=== PATIENT | male | born 1935 | race Asian ===

== ENCOUNTER 2016-09-26 19:55 | Emergency (ER) | payer OTHER, BC ==
[~2016-09-26 19:55] MED LIST: ALD25 PO; AMLODIPINE BESYL5 M1 GT; AMLODIPINE BESYL5 M1 PO; APAP/HYDROCODON1 T13 GT; ASPI-COR81 M1 PO; ASPIR LOW81 MG PO; BACLOFEN10 MG; BACLOFEN10 MG PO; BACOINT TOP; CARVEDILOL12.5 M1 PO; CARVEDILOL12.5 MG PO; CEL250; CEL500 PO; CELLCEPT500 MG GT; CIPROFLOXACIN500 MG GT; CLEOCIN HCL150 MG GT; CLINDAMYCIN HC300 MG GT; CLINDAMYCIN HC300 MG PO; COLACE100 MG GT; COR3 GT; COREG CR20 MG; COREG GT; COZ50 GT; COZAAR25 M PO; COZAAR50 MG PO; DIFLUCAN200 MG PO; ECO81 GT; ELA25 GT; ELAVIL25 MG PO; FINASTERIDE5 M1 PO; FLO4 PO; FLUOXETINE10 M1 PO; GLUCERNA; GOOD SENSE ASPI81 M3 PO; HYDROCOD BIT &1 TAB PO; HYDROCODONE/ACE1 TA2; HYDROCODONE/ACE1 TA2 PO; KEP500 GT; KEPPRA100 MG/M1; KEPPRA1000 M1 PO; LAC GT; LEVAQUIN750 MG GT; LIO10 GT; LIO10 PO; LIPI10 GT; LIPI20 GT; LIPI20 PO; LIPITOR40 MG PO; LOM GT; LOSARTAN POTASS25 M1 PO; LOSARTAN POTASS50 MG PO; MAC100 PO; METFORMIN ER500 M1; METFORMIN HCL500 MG GT; METFORMIN HCL500 MG PO; MIRTAZAPINE GT; MOM GT; NEU100 PO; NOR10T GT; NORCO1 TA2 GT; NYSTATIN100000 U/M PO; OMEPRAZOLE DR20 M1 PO; PROAIR HFA0.09 MG/A1 INH; PROS5 GT; PROSCAR5 MG PO; PROTONIX20 MG; PROTONIX40 MG GT; PROTONIX40 MG/Pac1 GT; PROZ10 PO; REM15 GT; REM15 PO; TRA50 GT; TRAZODONE HCL50 PO; TRAZODONE50 M1 PO; TYLENOL EXTRA500 M2; TYLENOL GT; TYLENOL650 M1 PR; VERIPRED 220 MG/5 ML PO; VIC GT; ZOF4 GT; [UNRECOGNIZED DRUG - OTHER] GT
[2016-09-26 21:08] LABS: BASOPHIL % 0.9 % (0-2); PLATELET COUNT 137 x10^3mcL (130-400)
[2016-09-26 21:19] LABS: CALCIUM 9.1 mg/dL (8.5-10.1); CARBON DIOXIDE 30.5 mmol/L (21-32); CHLORIDE SERUM 101 mmol/L (98-107); CREATININE SERUM 0.6 mg/dL (0.7-1.3); GLUCOSE SERUM 112 mg/dL (74-106); POTASSIUM SERUM 4.1 mmol/L (3.5-5.1); SODIUM SERUM 135 mmol/L (136-145)
[2016-09-26 21:24] LABS: ALKALINE PHOSPHATASE 102 U/L (46-116); ALT/SGPT 30 U/L (16-63); AST/SGOT 21 U/L (15-37); BILIRUBIN TOTAL 0.5 mg/dL (0.20-1.00); LIPASE 72 IU/L (73-393); MAGNESIUM 2.1 mg/dL (1.8-2.4); TOTAL PROTEIN, SERUM 7.2 g/dL (6.4-8.2)
[2016-09-26 21:25] LABS: ALBUMIN 3.2 g/dL (3.4-5.0)
[2016-09-26 21:36] LABS: microscopic required? NO
[2016-09-26 21:40] LABS: RED CELL DISTRIBUTION WIDTH 16.4 % (11.5-14.5)
[2016-09-26 21:44] LABS: UA SPECIFIC GRAVITY <=1.005 (1.005-1.035); urine erythrocyte NEGATIVE (NEGATIVE)
[2016-09-27] VITALS: BP 106/71
== END 2016-09-27 | disposition home or self-care (01) ==
LOC: ED 19:55
PROVIDERS: Emergency Medicine
DX: R09.89 Other specified symptoms and signs involving the circulatory and respiratory systems (principal); R50.9 Fever, unspecified; Z88.8 Allergy status to other drugs, medicaments and biological substances; Z88.5 Allergy status to narcotic agent; Z91.040 Latex allergy status; Z79.899 Other long term (current) drug therapy; Z79.82 Long term (current) use of aspirin; Z79.84 Long term (current) use of oral hypoglycemic drugs
CPT/HCPCS: 36415; 36600; 83880; J0696; J2001

== ENCOUNTER 2016-12-13 13:36 | Emergency (ER) | payer OTHER, BC ==
[2016-12-13 14:20] LABS: microscopic required? NO
[2016-12-13 14:31] LABS: BASOPHIL % 0.4 % (0-2)
[2016-12-13 14:32] LABS: PLATELET COUNT 121 x10^3mcL (130-400); RED CELL DISTRIBUTION WIDTH 15.7 % (11.5-14.5)
[2016-12-13 14:35] LABS: CALCIUM 8.9 mg/dL (8.5-10.1); CARBON DIOXIDE 30.9 mmol/L (21-32); CHLORIDE SERUM 103 mmol/L (98-107); CREATININE SERUM 0.6 mg/dL (0.7-1.3); GLUCOSE SERUM 123 mg/dL (74-106); POTASSIUM SERUM 4.2 mmol/L (3.5-5.1); SODIUM SERUM 138 mmol/L (136-145)
[2016-12-13 14:40] LABS: ALKALINE PHOSPHATASE 89 U/L (46-116); ALT/SGPT 22 U/L (16-63); AST/SGOT 15 U/L (15-37); BILIRUBIN TOTAL 0.48 mg/dL (0.20-1.00); TOTAL PROTEIN, SERUM 7.2 g/dL (6.4-8.2)
[2016-12-13 14:45] LABS: UA SPECIFIC GRAVITY <=1.005 (1.005-1.035); urine erythrocyte NEGATIVE (NEGATIVE)
[2016-12-13 16:59] VITALS: BP 121/76
== END 2016-12-13 18:01 | disposition home or self-care (01) ==
LOC: ED 13:36
PROVIDERS: Emergency Medicine
DX: H72.92 Unspecified perforation of tympanic membrane, left ear (principal); G93.40 Encephalopathy, unspecified; E78.00 Pure hypercholesterolemia, unspecified; I10 Essential (primary) hypertension; E11.9 Type 2 diabetes mellitus without complications; L12.0 Bullous pemphigoid; K21.9 Gastro-esophageal reflux disease without esophagitis; Z79.84 Long term (current) use of oral hypoglycemic drugs; Z79.891 Long term (current) use of opiate analgesic; Z79.899 Other long term (current) drug therapy; Z86.79 Personal history of other diseases of the circulatory system; Z87.820 Personal history of traumatic brain injury; Z95.5 Presence of coronary angioplasty implant and graft; Z98.890 Other specified postprocedural states
CPT/HCPCS: 83880; J0295; J3490; J7030; J7050; Q0092

== ENCOUNTER 2017-01-10 18:17 | Emergency (ER) | payer OTHER, BC ==
[2017-01-10 20:48] LABS: BASOPHIL % 0.6 % (0-2); PLATELET COUNT 149 x10^3mcL (130-400)
[2017-01-10 20:54] LABS: CALCIUM 9.3 mg/dL (8.5-10.1); CARBON DIOXIDE 29.9 mmol/L (21-32); CHLORIDE SERUM 103 mmol/L (98-107); CREATININE SERUM 0.6 mg/dL (0.7-1.3); GLUCOSE SERUM 116 mg/dL (74-106); POTASSIUM SERUM 4.5 mmol/L (3.5-5.1); SODIUM SERUM 136 mmol/L (136-145)
[2017-01-10 20:59] LABS: ALBUMIN 3.4 g/dL (3.4-5.0); ALKALINE PHOSPHATASE 96 U/L (46-116); ALT/SGPT 23 U/L (16-63); AST/SGOT 19 U/L (15-37); HDL CHOLESTEROL 44 mg/dL (40-60); TOTAL PROTEIN, SERUM 7.8 g/dL (6.4-8.2)
[2017-01-10 21:02] LABS: CHOLESTEROL 92 mg/dL (<200)
[2017-01-10 21:07] LABS: microscopic required? NO
[2017-01-10 21:11] LABS: urine erythrocyte NEGATIVE (NEGATIVE)
[2017-01-10 23:05] VITALS: BP 148/99
== END 2017-01-10 23:05 | disposition home or self-care (01) ==
LOC: ED 18:17
PROVIDERS: Emergency Medicine
DX: J69.0 Pneumonitis due to inhalation of food and vomit (principal); E86.0 Dehydration; I10 Essential (primary) hypertension; E11.9 Type 2 diabetes mellitus without complications; Z79.899 Other long term (current) drug therapy; E78.00 Pure hypercholesterolemia, unspecified; K21.9 Gastro-esophageal reflux disease without esophagitis; Z79.84 Long term (current) use of oral hypoglycemic drugs; Z95.5 Presence of coronary angioplasty implant and graft
CPT/HCPCS: 83880; Q0092

== ENCOUNTER 2017-04-03 17:23 | Emergency (ER) | payer OTHER, BC ==
[~2017-04-03] VITALS: Ht 165.1 cm; Wt 50.8 kg
[2017-04-03 18:48] VITALS: Ht 165.1 cm; Wt 50.8 kg
[2017-04-03 22:45] LABS: BASOPHIL % 1.1 % (0-2)
[2017-04-03 22:46] LABS: CALCIUM 9.6 mg/dL (8.5-10.1); CARBON DIOXIDE 32.2 mmol/L (21-32); CHLORIDE SERUM 101 mmol/L (98-107); CREATININE SERUM 0.6 mg/dL (0.7-1.3); GLUCOSE SERUM 134 mg/dL (74-106); POTASSIUM SERUM 4.5 mmol/L (3.5-5.1); SODIUM SERUM 138 mmol/L (136-145)
[2017-04-03 22:50] LABS: ALKALINE PHOSPHATASE 123 U/L (46-116); ALT/SGPT 23 U/L (16-63); AST/SGOT 21 U/L (15-37); BILIRUBIN TOTAL 0.55 mg/dL (0.20-1.00); LIPASE 93 IU/L (73-393); TOTAL PROTEIN, SERUM 7.7 g/dL (6.4-8.2)
[2017-04-03 22:55] LABS: ALBUMIN 3.2 g/dL (3.4-5.0)
[2017-04-03 22:56] LABS: PLATELET COUNT 86 x10^3mcL (130-400); RED CELL DISTRIBUTION WIDTH 15.4 % (11.5-14.5)
[2017-04-03 23:25] LABS: microscopic required? NO
[2017-04-03 23:43] LABS: urine erythrocyte NEGATIVE (NEGATIVE)
[2017-04-04 02:01] LABS: AMPHETAMINE QUAL UR NONE DETECTED (NEG <=1000)
[2017-04-04 03:01] LABS: MAGNESIUM 2.2 mg/dL (1.8-2.4); PHOSPHOROUS 3.1 mg/dL (2.5-4.9)
[2017-04-04 03:22] VITALS: BP 125/80
[2017-04-04 06:07] LABS: FREE T4 1.46 ng/dL (0.76-1.46); FREE THYROXINE INDEX 2.9 ug/dL (1.4-4.5); T4(THYROXINE) 7.6 ug/dL (4.7-13.3)
[2017-04-04 06:12] LABS: T3 TOTAL 0.59 ng/mL
== END 2017-04-04 03:22 | disposition home or self-care (01) ==
LOC: ED 17:23 → DU 23:59 → ED 04-04 03:22
PROVIDERS: Emergency Medicine; Student in an Organized Health Care Education/Training Program
DX: J18.9 Pneumonia, unspecified organism (principal); I10 Essential (primary) hypertension; E78.00 Pure hypercholesterolemia, unspecified; K21.9 Gastro-esophageal reflux disease without esophagitis; E11.9 Type 2 diabetes mellitus without complications; Z88.1 Allergy status to other antibiotic agents; Z88.5 Allergy status to narcotic agent; Z88.8 Allergy status to other drugs, medicaments and biological substances
CPT/HCPCS: 83880; 84439; 87804; J1956; J7030; Q0092

== ENCOUNTER 2019-03-07 17:11 | Inpatient (IN) | payer OTHER, BC ==
[~2019-03-07] VITALS: Ht 165.1 cm; Wt 47.2 kg
[2019-03-07 20:15] LABS: microscopic required? NO
[2019-03-07 20:35] LABS: UA SPECIFIC GRAVITY 1.015 (1.005-1.035); urine erythrocyte NEGATIVE (NEGATIVE)
[2019-03-07 20:36] LABS: BASOPHIL % 0.3 % (0-2); PLATELET COUNT 260 x10^3mcL (130-400)
[2019-03-07 20:37] LABS: RED CELL DISTRIBUTION WIDTH 14.6 % (11.5-14.5)
[2019-03-07 21:00] LABS: CALCIUM 9.2 mg/dL (8.5-10.1); CARBON DIOXIDE 27.3 mmol/L (21-32); CHLORIDE SERUM 94 mmol/L (98-107); CREATININE SERUM 0.5 mg/dL (0.7-1.3); GLUCOSE SERUM 129 mg/dL (74-106); POTASSIUM SERUM 4.2 mmol/L (3.5-5.1); SODIUM SERUM 129 mmol/L (136-145)
[2019-03-07 21:03] LABS: T3 TOTAL 0.85 ng/mL
[2019-03-07 21:09] LABS: ALKALINE PHOSPHATASE 115 U/L (46-116); ALT/SGPT 34 U/L (16-63); AST/SGOT 22 U/L (15-37); BILIRUBIN TOTAL 0.8 mg/dL (0.20-1.00); C REACTIVE PROTEIN 6.4 mg/dL (<=0.9); TOTAL PROTEIN, SERUM 7.5 g/dL (6.4-8.2)
[2019-03-07 21:10] LABS: ALBUMIN 2.8 g/dL (3.4-5.0)
[2019-03-07 21:13] LABS: FREE T4 1.91 ng/dL (0.76-1.46); FREE THYROXINE INDEX 4.1 ug/dL (1.4-4.5); T4(THYROXINE) 9.9 ug/dL (4.7-13.3)
[2019-03-07 21:14] LABS: CK-MB 2.1 ng/mL (0-3.6)
[2019-03-07 21:22] LABS: ERYTHROCYTE SED RATE 53 mm/hr (0-20)
[2019-03-08 02:59] VITALS: BP 134/89
[2019-03-08 03:00] VITALS: BP 130/85
[2019-03-08 05:28] VITALS: BP 130/85
[2019-03-08 09:24] VITALS: BP 147/99
[2019-03-08 13:18] VITALS: BP 137/88
[2019-03-08 19:30] VITALS: BP 140/89
[2019-03-09 05:34] VITALS: BP 118/71
[2019-03-09 05:58] LABS: BASOPHIL % 0.6 % (0-2); PLATELET COUNT 282 x10^3mcL (130-400)
[2019-03-09 06:00] LABS: RED CELL DISTRIBUTION WIDTH 15.2 % (11.5-14.5)
[2019-03-09 06:30] LABS: CALCIUM 8.9 mg/dL (8.5-10.1); CARBON DIOXIDE 30.7 mmol/L (21-32); CHLORIDE SERUM 97 mmol/L (98-107); CREATININE SERUM 0.6 mg/dL (0.7-1.3); GLUCOSE SERUM 126 mg/dL (74-106); POTASSIUM SERUM 3.9 mmol/L (3.5-5.1); SODIUM SERUM 134 mmol/L (136-145)
[2019-03-09 09:50] VITALS: BP 131/84
[2019-03-09 14:34] VITALS: BP 124/76
[2019-03-09 16:52] VITALS: BP 128/81
[2019-03-09 21:16] VITALS: BP 125/80
[2019-03-10 05:24] VITALS: BP 92/64
[2019-03-10 05:37] VITALS: BP 115/72
[2019-03-10 08:24] VITALS: BP 118/77
[2019-03-10 10:06] VITALS: BP 118/77
[2019-03-10 12:11] VITALS: BP 118/75
[2019-03-10 16:42] VITALS: BP 117/72
== END 2019-03-10 19:00 | disposition home or self-care (01) | DRG 177 ==
LOC: ED 17:11 → DU 03-08 01:26 → ED 03-08 02:25 → DU 03-08 03:05
PROVIDERS: Specialist; ADMIT Internal Medicine
DX: J69.0 Pneumonitis due to inhalation of food and vomit (principal); J96.21 Acute and chronic respiratory failure with hypoxia; G93.41 Metabolic encephalopathy; E87.1 Hypo-osmolality and hyponatremia; I50.9 Heart failure, unspecified; J45.909 Unspecified asthma, uncomplicated; E86.0 Dehydration; K59.00 Constipation, unspecified; I11.9 Hypertensive heart disease without heart failure; I25.10 Atherosclerotic heart disease of native coronary artery without angina pectoris; E11.9 Type 2 diabetes mellitus without complications; M24.561 Contracture, right knee; G40.909 Epilepsy, unspecified, not intractable, without status epilepticus; G43.909 Migraine, unspecified, not intractable, without status migrainosus; Z87.01 Personal history of pneumonia (recurrent); Z68.36 Body mass index [BMI] 36.0-36.9, adult; Z74.01 Bed confinement status; Z87.820 Personal history of traumatic brain injury; Z93.1 Gastrostomy status; Z95.5 Presence of coronary angioplasty implant and graft; Z79.84 Long term (current) use of oral hypoglycemic drugs; Z86.73 Personal history of transient ischemic attack (TIA), and cerebral infarction without residual deficits
CPT/HCPCS: 82962; 83880; 84439; 90658; 90732; G0378; J0696; J1956; J2543; J7030; J7517; J7613; J7620; J7644; Q0092

== ENCOUNTER 2019-04-25 15:12 | Inpatient (IN) | payer OTHER, BC ==
[~2019-04-25] VITALS: Ht 170.2 cm; Wt 50.0 kg
[2019-04-25 16:20] LABS: BASOPHIL % 0.9 % (0-2); PLATELET COUNT 159 x10^3mcL (130-400)
[2019-04-25 16:29] LABS: RED CELL DISTRIBUTION WIDTH 17.1 % (11.5-14.5)
[2019-04-25 16:34] LABS: microscopic required? NO
[2019-04-25 16:49] LABS: UA SPECIFIC GRAVITY 1.015 (1.005-1.035); urine erythrocyte NEGATIVE (NEGATIVE)
[2019-04-25 17:02] LABS: ALBUMIN 2.9 g/dL (3.4-5.0); CARBON DIOXIDE 28.8 mmol/L (21-32); CHLORIDE SERUM 97 mmol/L (98-107); CREATININE SERUM 0.5 mg/dL (0.7-1.3); GLUCOSE SERUM 147 mg/dL (74-106); POTASSIUM SERUM 4.3 mmol/L (3.5-5.1); SODIUM SERUM 132 mmol/L (136-145); TOTAL PROTEIN, SERUM 7.3 g/dL (6.4-8.2)
[2019-04-25 17:03] LABS: ALKALINE PHOSPHATASE 121 U/L (46-116); ALT/SGPT 28 U/L (16-63); AST/SGOT 18 U/L (15-37); BILIRUBIN TOTAL 0.7 mg/dL (0.20-1.00); CALCIUM 9.1 mg/dL (8.5-10.1)
[2019-04-25 17:50] VITALS: BP 130/86
[2019-04-25 19:01] VITALS: BP 143/97
[2019-04-25] MEDS ORDERED: ACIDOPHILUS LA1 EAC1 GT (20:28)
[2019-04-25 20:36] VITALS: BP 139/86
[2019-04-26 04:59] VITALS: BP 132/87
[2019-04-26 06:28] LABS: BASOPHIL % 0.4 % (0-2); PLATELET COUNT 149 x10^3mcL (130-400)
[2019-04-26 06:42] LABS: CALCIUM 9.1 mg/dL (8.5-10.1); CARBON DIOXIDE 31.1 mmol/L (21-32); CHLORIDE SERUM 98 mmol/L (98-107); CREATININE SERUM 0.4 mg/dL (0.7-1.3); GLUCOSE SERUM 115 mg/dL (74-106); POTASSIUM SERUM 4.1 mmol/L (3.5-5.1); SODIUM SERUM 134 mmol/L (136-145)
[2019-04-26 08:45] VITALS: BP 143/102
[2019-04-26 13:00] VITALS: BP 132/93
[2019-04-26 17:23] VITALS: BP 130/90
[2019-04-26 22:07] VITALS: BP 126/85
[2019-04-27 05:40] VITALS: BP 143/99
[2019-04-27 08:09] VITALS: BP 135/86
[2019-04-27 12:04] VITALS: BP 105/70
[2019-04-27 17:20] VITALS: BP 138/95
[2019-04-27 20:30] VITALS: BP 142/90
[2019-04-28 05:51] VITALS: BP 132/89
[2019-04-28 06:32] LABS: BASOPHIL % 0.5 % (0-2); PLATELET COUNT 166 x10^3mcL (130-400)
[2019-04-28 06:41] LABS: RED CELL DISTRIBUTION WIDTH 16.8 % (11.5-14.5)
[2019-04-28 08:42] VITALS: BP 124/67
[2019-04-28 08:43] LABS: CALCIUM 9.5 mg/dL (8.5-10.1); CARBON DIOXIDE 30.9 mmol/L (21-32); CHLORIDE SERUM 97 mmol/L (98-107); CREATININE SERUM 0.6 mg/dL (0.7-1.3); GLUCOSE SERUM 142 mg/dL (74-106); POTASSIUM SERUM 4.2 mmol/L (3.5-5.1); SODIUM SERUM 134 mmol/L (136-145)
[2019-04-28 12:06] VITALS: BP 115/71
[2019-04-28 16:59] VITALS: BP 114/77
[2019-04-28 19:40] VITALS: BP 104/63
[2019-04-29 04:02] VITALS: BP 132/81
[2019-04-29 06:58] LABS: CALCIUM 9.4 mg/dL (8.5-10.1); CARBON DIOXIDE 35.3 mmol/L (21-32); CHLORIDE SERUM 98 mmol/L (98-107); CREATININE SERUM 0.5 mg/dL (0.7-1.3); GLUCOSE SERUM 131 mg/dL (74-106); POTASSIUM SERUM 4.4 mmol/L (3.5-5.1); SODIUM SERUM 135 mmol/L (136-145)
[2019-04-29 07:22] LABS: BASOPHIL % 0.3 % (0-2); PLATELET COUNT 154 x10^3mcL (130-400)
[2019-04-29 07:26] LABS: RED CELL DISTRIBUTION WIDTH 16.2 % (11.5-14.5)
[2019-04-29 08:29] VITALS: BP 142/82
[2019-04-29 12:43] VITALS: BP 127/76
[2019-04-29 16:39] VITALS: BP 129/85
[2019-04-29 20:37] VITALS: BP 139/83
[2019-04-30 05:16] VITALS: BP 126/81
[2019-04-30 06:21] LABS: BASOPHIL % 0.3 % (0-2); PLATELET COUNT 151 x10^3mcL (130-400)
[2019-04-30 07:21] LABS: RED CELL DISTRIBUTION WIDTH 16.3 % (11.5-14.5)
[2019-04-30 08:47] VITALS: BP 125/80
[2019-04-30 09:34] LABS: CALCIUM 9.9 mg/dL (8.5-10.1); CARBON DIOXIDE 35.1 mmol/L (21-32); CHLORIDE SERUM 96 mmol/L (98-107); CREATININE SERUM 0.5 mg/dL (0.7-1.3); GLUCOSE SERUM 141 mg/dL (74-106); POTASSIUM SERUM 4.4 mmol/L (3.5-5.1); SODIUM SERUM 135 mmol/L (136-145)
[2019-04-30 12:09] VITALS: BP 131/88
[2019-04-30 17:23] VITALS: BP 125/86
[2019-04-30 19:32] VITALS: BP 166/94
[2019-05-01 04:26] VITALS: BP 140/84
[2019-05-01 06:56] LABS: BASOPHIL % 0.3 % (0-2); PLATELET COUNT 162 x10^3mcL (130-400)
[2019-05-01 08:25] LABS: CALCIUM 9.7 mg/dL (8.5-10.1); CARBON DIOXIDE 39.4 mmol/L (21-32); CHLORIDE SERUM 98 mmol/L (98-107); CREATININE SERUM 0.5 mg/dL (0.7-1.3); GLUCOSE SERUM 141 mg/dL (74-106); POTASSIUM SERUM 3.9 mmol/L (3.5-5.1); SODIUM SERUM 138 mmol/L (136-145)
[2019-05-01 08:27] VITALS: Ht 170.2 cm; Wt 50.0 kg
[2019-05-01 08:35] VITALS: BP 124/91
[2019-05-01 12:09] VITALS: BP 123/73
[2019-05-01 16:36] VITALS: BP 110/74
[2019-05-01 21:17] VITALS: BP 134/74
[2019-05-02 06:01] VITALS: BP 135/81
[2019-05-02 06:52] LABS: BASOPHIL % 0.5 % (0-2); PLATELET COUNT 162 x10^3mcL (130-400)
[2019-05-02 07:02] LABS: CALCIUM 10.1 mg/dL (8.5-10.1); CARBON DIOXIDE 37.7 mmol/L (21-32); CHLORIDE SERUM 99 mmol/L (98-107); CREATININE SERUM 0.5 mg/dL (0.7-1.3); GLUCOSE SERUM 143 mg/dL (74-106); SODIUM SERUM 139 mmol/L (136-145)
[2019-05-02 07:07] LABS: RED CELL DISTRIBUTION WIDTH 15.8 % (11.5-14.5)
[2019-05-02 08:40] VITALS: BP 159/83
[2019-05-02 12:27] VITALS: BP 106/70
[2019-05-02 17:22] VITALS: BP 159/82
[2019-05-02 21:48] VITALS: BP 137/93
[2019-05-03 06:29] VITALS: BP 133/90
[2019-05-03 08:25] VITALS: BP 128/83
[2019-05-03 11:32] VITALS: BP 128/83
[2019-05-03 13:41] VITALS: BP 131/78
[2019-05-03 18:01] VITALS: BP 128/78
[2019-05-03 20:16] VITALS: BP 131/75
[2019-05-04 04:37] VITALS: BP 115/74
[2019-05-04 07:00] LABS: BASOPHIL % 0.2 % (0-2); PLATELET COUNT 175 x10^3mcL (130-400)
[2019-05-04 07:06] LABS: RED CELL DISTRIBUTION WIDTH 15.8 % (11.5-14.5)
[2019-05-04 07:12] VITALS: BP 133/75
[2019-05-04 07:33] LABS: CALCIUM 10.1 mg/dL (8.5-10.1); CARBON DIOXIDE 38.6 mmol/L (21-32); CHLORIDE SERUM 102 mmol/L (98-107); CREATININE SERUM 0.6 mg/dL (0.7-1.3); GLUCOSE SERUM 146 mg/dL (74-106); POTASSIUM SERUM 4.4 mmol/L (3.5-5.1); SODIUM SERUM 144 mmol/L (136-145)
[2019-05-04 12:22] VITALS: BP 119/72
[2019-05-04 16:49] VITALS: BP 129/82
[2019-05-04 20:23] VITALS: BP 96/74
[2019-05-05 04:30] VITALS: BP 145/80
[2019-05-05 08:47] VITALS: BP 130/79
[2019-05-05 12:24] VITALS: BP 116/74
[2019-05-05 16:39] VITALS: BP 127/78
== END 2019-05-05 18:50 | disposition home health service (06) | DRG 871 ==
LOC: ED 15:12 → DU 17:31
PROVIDERS: Emergency Medicine; ADMIT Internal Medicine
DX: A41.9 Sepsis, unspecified organism (principal); J18.9 Pneumonia, unspecified organism; J96.01 Acute respiratory failure with hypoxia; Z68.1 Body mass index [BMI] 19.9 or less, adult; B96.5 Pseudomonas (aeruginosa) (mallei) (pseudomallei) as the cause of diseases classified elsewhere; I69.920 Aphasia following unspecified cerebrovascular disease; E11.9 Type 2 diabetes mellitus without complications; I11.9 Hypertensive heart disease without heart failure; I25.10 Atherosclerotic heart disease of native coronary artery without angina pectoris; G40.909 Epilepsy, unspecified, not intractable, without status epilepticus; J44.9 Chronic obstructive pulmonary disease, unspecified; M19.90 Unspecified osteoarthritis, unspecified site; I25.2 Old myocardial infarction; Z79.84 Long term (current) use of oral hypoglycemic drugs; Z95.5 Presence of coronary angioplasty implant and graft
CPT/HCPCS: 82962; 83880; 87804; A4628; C1751; G0378; J0132; J1815; J2185; J7030; J7050; J7620; Q0092

== ENCOUNTER 2019-05-28 20:57 | Emergency (ER) | payer OTHER, BC ==
[~2019-05-28] VITALS: Ht 167.6 cm; Wt 49.0 kg
[~2019-05-28 20:57] MED LIST changes: +ACIDOPHILUS LA1 EAC1 GT
[2019-05-28 21:06] VITALS: Ht 167.6 cm; Wt 49.0 kg
[2019-05-28 22:41] LABS: BASOPHIL % 0.9 % (0-2); PLATELET COUNT 137 x10^3mcL (130-400)
[2019-05-28 22:43] LABS: RED CELL DISTRIBUTION WIDTH 16.8 % (11.5-14.5)
[2019-05-28 23:00] LABS: CALCIUM 8.5 mg/dL (8.5-10.1); CARBON DIOXIDE 29.8 mmol/L (21-32); CHLORIDE SERUM 102 mmol/L (98-107); CREATININE SERUM 0.5 mg/dL (0.7-1.3); GLUCOSE SERUM 144 mg/dL (74-106); POTASSIUM SERUM 4.6 mmol/L (3.5-5.1); SODIUM SERUM 135 mmol/L (136-145)
[2019-05-28 23:06] LABS: ALKALINE PHOSPHATASE 116 U/L (46-116); ALT/SGPT 34 U/L (16-63); AST/SGOT 17 U/L (15-37); BILIRUBIN TOTAL 0.4 mg/dL (0.20-1.00); HDL CHOLESTEROL 41 mg/dL (40-60); TOTAL PROTEIN, SERUM 6.8 g/dL (6.4-8.2)
[2019-05-28 23:07] LABS: ALBUMIN 2.6 g/dL (3.4-5.0); CHOLESTEROL 86 mg/dL (<200)
[2019-05-28 23:41] LABS: microscopic required? NO
[2019-05-28 23:45] LABS: UA SPECIFIC GRAVITY <=1.005 (1.005-1.035); urine erythrocyte NEGATIVE (NEGATIVE)
[2019-05-29 02:33] VITALS: BP 121/75
== END 2019-05-29 02:33 | disposition home or self-care (01) ==
LOC: ED 20:57
PROVIDERS: Emergency Medicine
DX: K06.8 Other specified disorders of gingiva and edentulous alveolar ridge (principal); R04.2 Hemoptysis; I10 Essential (primary) hypertension; E11.9 Type 2 diabetes mellitus without complications; E78.00 Pure hypercholesterolemia, unspecified; K21.9 Gastro-esophageal reflux disease without esophagitis; Z91.040 Latex allergy status; Z88.6 Allergy status to analgesic agent; Z88.8 Allergy status to other drugs, medicaments and biological substances; Z87.820 Personal history of traumatic brain injury
CPT/HCPCS: J7030